=== PATIENT | male | born 1955 | race Hispanic/Latino ===

== ENCOUNTER 2024-01-26 23:20 | Emergency (ER) | payer MEDICARE ==
[~2024-01-26] VITALS: Ht 172.7 cm; Wt 79.8 kg
[2024-01-26 23:24] VITALS: PULSE 80; RESP 18; TEMP 98.2
[2024-01-27] MEDS: HYDROCODONE/APAP 5MG-325MG TAB PO ONE
[2024-01-27] MEDS ORDERED: ULTRAM 50MG50 MG PO (00:04)
[2024-01-27 04:02] VITALS: BP 136/74; PULSE 71; RESP 16; TEMP 98.8; O2SAT 98
== END 2024-01-27 00:40 | disposition home or self-care (01) ==
LOC: FSED 23:37
DX: S60.122A Contusion of left index finger with damage to nail, initial encounter (principal); W22.8XXA Striking against or struck by other objects, initial encounter; Y92.89 Other specified places as the place of occurrence of the external cause; I10 Essential (primary) hypertension; E11.9 Type 2 diabetes mellitus without complications; E78.5 Hyperlipidemia, unspecified
CPT/HCPCS: 99283